=== PATIENT | male | born 1965 | race Caucasian/White ===

== ENCOUNTER 2018-10-08 17:58 | Outpatient (CLI) | payer OTHER ==
--- NOTE | 2018-10-10 15:50 | Ultrasound Report ---
Reason: BONE SOFT TISSURE SKIN NEOPLASM UNSPEC BEHAVIOR Procedure Date: 10/08/2018 Accession Number: [id number] / [id number] Procedure: US - Head or Neck Soft Tissue CPT Code: FULL RESULT: EXAM: NECK ULTRASOUND EXAM DATE: 10/08/2018 06:30 PM. CLINICAL HISTORY: Palpable mass in posterior neck/shoulder area x1 year, becoming more painful x3 months. COMPARISON: CERVICAL SPINE COMPLETE 12/01/2013 9:18 AM. TECHNIQUE: Real-time sonographic imaging was performed by the sock knitter utilizing color-flow. Multiple automotive sales representative static images were saved for review. FINDINGS: At the site of palpable abnormality in the right posterior neck/shoulder region, there is an ovoid hypoechoic well-defined mass in the subcutaneous fat superficial to the underlying musculature. This measures 4.4 x 1.9 x 0.7 cm. No internal or peripheral vascularity. The mass is encapsulated, hypoechoic, with multiple fine echogenic striations parallel to the skin. There is an echogenic fascial plane the mass from the underlying musculature. No fluid collection or adenopathy visualized. The comparable location in the contralateral left neck was imaged for comparison and appeared within normal limits. IMPRESSION: Palpable mass in the right posterior neck/shoulder region has imaging features consistent with a subcutaneous lipoma. No evidence of deep extension or invasion of underlying structures. [facility]
== END 2018-10-08 17:59 | disposition home or self-care (01) ==
LOC: DI 17:58
PROVIDERS: ATTEND Family Medicine
DX: D49.2 Neoplasm of unspecified behavior of bone, soft tissue, and skin (principal)
CPT/HCPCS: 76536

== ENCOUNTER 2019-11-17 17:39 | Outpatient (CLI) | payer OTHER | END 2019-11-17 17:40 | disposition home or self-care (01) | LOC: COV 17:39 | PROVIDERS: ATTEND Family Medicine | DX: R50.9 Fever, unspecified (principal); M79.10 Myalgia, unspecified site; R19.7 Diarrhea, unspecified | CPT/HCPCS: 81599 ==

== ENCOUNTER 2020-04-10 16:42 | Outpatient (CLI) | payer OTHER ==
--- NOTE | 2020-04-11 13:23 | MRI Report ---
PROCEDURE: Shoulder RT W/O INDICATIONS: STRAIN OF MUSCLE AND TENDONS OF ROTATOR CUFF TECHNIQUE: Noncontrast oblique coronal T2 fast spin echo with fat saturation, oblique sagittal T1 spin echo and T2 fast spin echo with fat saturation, axial T1 spin echo and T2 fast spin echo with fat saturation t hrough the shoulder. COMPARISON: None. FINDINGS: Image quality: Excellent. Rotator cuff: There is tendinosis and low-grade articular and bursal surface partial-thickness tear i nvolving distal supraspinatus at its insertion on humeral head extending to the musculotendinous junc tion. Distal infraspinatus and subscapularis tendons are intact. No full-thickness rotator cuff tendo n rupture. No significant rotator cuff muscle atrophy on sagittal images. Bones and bursae: No bone marrow contusions or fractures. There is suggestion of postsurgical wideni ng at the acromioclavicular joint. Moderate glenohumeral joint osteoarthritic changes are seen. Small amount of subacromial subdeltoid bursal fluid is present. Capsule and soft tissues: In the absence of intra-articular contrast, there is suggestion of superio r labral tear at 11 to 1:00 position. The glenohumeral ligaments appear intact. The long head of the biceps tendon is thickened is suggestive of tendinosis. The rotator interval appears normal, without fibrosis. The coracohumeral ligament is normal in thickness. IMPRESSION: 1. Tendinosis and low-grade articular and bursal surface partial-thickness tear involving distal supr aspinatus at its insertion on humeral head extending to musculotendinous junction. No full-thickness rotator cuff tendon rupture. 2. Suggestion of postsurgical widening at acromioclavicular joint. Moderate glenohumeral joint osteoa rthritis. 3. Suggestion of superior labral tear at 11 to 1:00 position. 4. Proximal intra-articular portion of long head of biceps tendinosis. Reviewed by: Rudy Blum MD on 04/11/2020 1:22 PM PDT Approved by: Rudy Blum MD on 04/11/2020 1:22 PM PDT Station ID: [id number]
== END 2020-04-10 16:43 | disposition home or self-care (01) ==
LOC: DI 16:42
PROVIDERS: ATTEND Family Medicine
DX: S46.011A Strain of muscle(s) and tendon(s) of the rotator cuff of right shoulder, initial encounter (principal); M75.81 Other shoulder lesions, right shoulder

== ENCOUNTER 2020-08-28 12:39 | Outpatient (CLI) | payer OTHER ==
--- NOTE | 2020-08-29 15:55 | XRAY Report ---
PROCEDURE: Lumbar Spine 2 View INDICATIONS: CHRONIC LOW BACK PAIN TECHNIQUE: 2 views of the lumbar spine were acquired. COMPARISON: X-ray lumbar spine 07/23/2011 FINDINGS: Bones: 5 [id number] vertebrae are present. There is trace retrolisthesis of L2 on L3, L3 on L4 , L4 on L5. There is severe disc and foraminal narrowing noted L5-S1, moderate to severe L4-5, modera te L3-4. Small partially bridging anterior osteophytes are noted at L3-4. No vertebral body compressi on fractures. No suspicious bony lesions. Soft tissues: Overlying bowel gas pattern is normal. No suspicious soft tissue calcifications. IMPRESSION: Degenerative appearance most notable at L4-5 and L5-S1, mildly progressive compared to 2 011. Reviewed by: Genna Juares MD on 08/29/2020 3:53 PM PST Approved by: Genna Juares MD on 08/29/2020 3:53 PM PST Station ID: [id number]
== END 2020-08-28 12:40 | disposition home or self-care (01) ==
LOC: DI 12:39
PROVIDERS: ATTEND Family Medicine
DX: M47.817 Spondylosis without myelopathy or radiculopathy, lumbosacral region (principal); M48.07 Spinal stenosis, lumbosacral region

== ENCOUNTER 2021-01-18 10:49 | Day surgery (SDC) | payer OTHER ==
[2021-01-18] MEDS ORDERED: LACTATED RINGERS 1,000 ML IV ONE (10:55)
[2021-01-18] MEDS ORDERED: ONDANSETRON 4 MG/2 ML VIAL ONE (11:07)
[2021-01-18] MEDS ORDERED: fentaNYL 250 MCG/5 ML VIAL ONE (14:26)
[2021-01-18] MEDS ORDERED: MIDAZOLAM 2 MG/2 ML VIAL ONE ×3 (14:26→14:58)
[2021-01-18] MEDS ORDERED: LACTATED RINGERS 800 ML IV ONE (15:15)
[2021-01-18 15:49] VITALS: BP 113/78
== END 2021-01-18 10:50 | disposition home or self-care (01) ==
LOC: SDS 10:49
PROVIDERS: ATTEND Surgery
PROC: 0DBK8ZZ Excision of Ascending Colon, Via Natural or Artificial Opening Endoscopic (ICD-10-PCS; principal; 2021-01-18 12:30)
DX: K92.1 Melena (principal); D12.2 Benign neoplasm of ascending colon
CPT/HCPCS: 45380; J3010; J7120

== ENCOUNTER 2021-03-21 15:40 | Outpatient (CLI) | payer OTHER | END 2021-03-21 15:41 | disposition home or self-care (01) | LOC: COV 15:40 | PROVIDERS: ATTEND Family Medicine | DX: R05 Cough (principal); R06.02 Shortness of breath; M79.10 Myalgia, unspecified site; R53.83 Other fatigue; R68.83 Chills (without fever); R07.0 Pain in throat; Z20.822 Contact with and (suspected) exposure to COVID-19 ==

== ENCOUNTER 2022-12-25 09:51 | Outpatient (CLI) | payer BC ==
[2022-12-25 12:00] LABS: BASOPHILS % (AUTO) 0.4 %; EOSINOPHILS # (AUTO) 0.1 10^3/uL (0.0-0.7); EOSINOPHILS % (AUTO) 1.9 %; HCT - HEMATOCRIT 48.2 % (42.0-52.0); HGB - HEMOGLOBIN 15.4 g/dL (14.0-18.0); LYMPHOCYTES % (AUTO) 26.7 %; MEAN CORPUSCULAR HEMOGLOBIN 29.2 pg (27.0-31.0); MEAN CORPUSCULAR VOLUME 91.3 fL (80.0-94.0); MEAN PLATELET VOLUME 9.7 fL (7.4-11.4); MONOCYTES # (AUTO) 0.5 10^3/uL (0.0-1.0); NEUTROPHILS # (AUTO) 4.9 10^3/uL (1.5-6.6); NEUTROPHILS % (AUTO) 64.6 %; PLT - PLATELET COUNT 236 10^3/uL (130-450); RED BLOOD COUNT 5.28 10^6/uL (4.70-6.10); RED CELL DISTRIBUTION WIDTH 14.3 % (12.0-15.0); WHITE BLOOD COUNT 7.5 x10^3/uL (4.8-10.8)
[2022-12-25 12:29] LABS: ALBUMIN 4.5 g/dL (3.2-5.5); ALBUMIN/GLOBULIN RATIO 1.2 (1.0-2.2); ALKALINE PHOSPHATASE 87 IU/L (42-121); ALT ALANINE AMINOTRANSFERASE 40 IU/L (10-60); AST ASPARTATE AMINOTRANSFERASE 27 IU/L (10-42); BILIRUBIN,TOTAL 0.5 mg/dL (0.2-1.0); BUN - BLOOD UREA NITROGEN 18 mg/dL (6-20); CALCIUM 9.4 mg/dL (8.5-10.3); CARBON DIOXIDE - CO2 28 mmol/L (21-32); CHLORIDE 106 mmol/L (101-111); CHOL/HDL RATIO 7.2 (<5.0); CHOLESTEROL 288 mg/dL; CREATININE 1.1 mg/dL (0.6-1.2); ESTIMATED AVERAGE GLUCOSE 111 mg/dL (70-100); GFR - MDRD 69 (>89); GLUCOSE 104 mg/dL (70-100); HDL CHOLESTEROL 40 mg/dL; HEMOGLOBIN A1c% 5.5 % (4.27-6.07); LDL CHOLESTEROL,CALCULATED 199 mg/dL; POTASSIUM 3.8 mmol/L (3.5-5.0); SODIUM 140 mmol/L (135-145); TOTAL PROTEIN 8.3 g/dL (6.7-8.2); TRIGLYCERIDES 247 mg/dL; VLDL CHOLESTEROL 49 mg/dL
[2022-12-25 12:38] LABS: THYROID STIMULATING HORMONE 0.92 uIU/mL (0.34-5.60)
== END 2022-12-25 09:52 | disposition home or self-care (01) ==
LOC: LAB.N 09:51
PROVIDERS: ATTEND Nurse Practitioner Family
DX: Z00.00 Encounter for general adult medical examination without abnormal findings (principal); E66.9 Obesity, unspecified
CPT/HCPCS: 36415; 80053; 80061; 83036; 83721; 84153; 84443; 85025

== ENCOUNTER 2023-09-22 12:02 | Outpatient (CLI) | payer BC ==
[2023-09-22 18:34] LABS: ALBUMIN 4.5 g/dL (3.2-5.5); ALBUMIN/GLOBULIN RATIO 1.4 (1.0-2.2); ALKALINE PHOSPHATASE 92 IU/L (42-121); ALT ALANINE AMINOTRANSFERASE 46 IU/L (10-60); AST ASPARTATE AMINOTRANSFERASE 20 IU/L (10-42); BILIRUBIN,TOTAL 0.4 mg/dL (0.2-1.0); BUN - BLOOD UREA NITROGEN 29 mg/dL (6-20); CARBON DIOXIDE - CO2 29 mmol/L (21-32); CHLORIDE 106 mmol/L (101-111); CHOL/HDL RATIO 3.1 (<5.0); CHOLESTEROL 169 mg/dL; CREATININE 1.1 mg/dL (0.6-1.3); GFR - MDRD 69 (>89); GLUCOSE 86 mg/dL (74-104); HDL CHOLESTEROL 54 mg/dL; LDL CHOLESTEROL,CALCULATED 98 mg/dL; LDL/HDL RATIO 1.8 (<3.6); POTASSIUM 4.4 mmol/L (3.5-4.5); SODIUM 140 mmol/L (135-145); TOTAL PROTEIN 7.8 g/dL (6.4-8.9); TRIGLYCERIDES 85 mg/dL (48-352); VLDL CHOLESTEROL 17 mg/dL
== END 2023-09-22 12:03 | disposition home or self-care (01) ==
LOC: LAB.N 12:02
PROVIDERS: ATTEND Nurse Practitioner Family
DX: E78.5 Hyperlipidemia, unspecified (principal)
CPT/HCPCS: 36415; 80053; 80061; 83721